=== PATIENT | female | born 1985 | race Caucasian/White ===

== ENCOUNTER 2019-01-12 17:07 | Inpatient (IN) | payer OTHER ==
[~2019-01-12] VITALS: Ht 167.6 cm; Wt 109.0 kg
[~2019-01-12 17:07] MED LIST: AMOX1TAB10 PO; DOCU-144 PO; HYDR-4011 PO; MEDICAL NOTE
[2019-01-12 19:30] VITALS: BP 135/83; PULSE 84; RESP 18
[2019-01-12 19:58] VITALS: Ht 167.6 cm; Wt 109.0 kg
[2019-01-12] MEDS ORDERED: ONDANSETRON 4 MG INJ IV PRN (22:00)
[2019-01-12] MEDS ORDERED: NACL 0.9% 3 ML SYG IV SCH (22:00)
[2019-01-12] MEDS: DEXTROSE 5%-0.45% NACL 1,000 ML IV SCH (22:45)
[2019-01-12] MEDS: morphine 2 MG INJ IV PRN (22:46)
[2019-01-13 01:47] VITALS: BP 103/56; PULSE 75; RESP 18
[2019-01-13] MEDS: DEXTROSE 5%-0.45% NACL 1,000 ML IV SCH ×3 (06:26→22:59)
[2019-01-13 07:45] VITALS: BP 119/71; PULSE 68; RESP 18
[2019-01-13] MEDS: FAMOTIDINE 20 MG INJ IV SCH ×2 (09:00→20:55)
[2019-01-13] MEDS ORDERED: FLU VACC QS 2019-20 (6MOS UP) 0.5 ML SYG IM* ONE (10:00)
[2019-01-13] MEDS ORDERED: POTASSIUM CHLORIDE 100 ML IVPB ONE (10:30)
[2019-01-13] MEDS: morphine 2 MG INJ IV PRN ×2 (10:44→18:40)
[2019-01-13] MEDS: PIPER-TAZO 3.375 GM IV (PMX) 100 ML IVPB SCH (13:35)
[2019-01-13 14:25] VITALS: BP 111/61; PULSE 72; RESP 18
[2019-01-13 19:51] VITALS: BP 123/76; PULSE 69; RESP 18
[2019-01-14] VITALS (36 sets, daily range): BP systolic 106–156; BP diastolic 55–95; PULSE 64–86; RESP 10–26
[2019-01-14] MEDS: PIPER-TAZO 3.375 GM IV (PMX) 100 ML IVPB SCH ×4 (00:05→21:24)
[2019-01-14] MEDS: DEXTROSE 5%-0.45% NACL 1,000 ML IV SCH ×2 (05:00→15:39)
[2019-01-14] MEDS: morphine 2 MG INJ IV PRN ×3 (08:29→23:34)
[2019-01-14] MEDS: FAMOTIDINE 20 MG INJ IV SCH ×2 (10:19→20:20)
[2019-01-14] MEDS ORDERED: HYDROmorphONE 1 MG/5 ML IV SYRINGE IV PRN ×3 (13:30)
[2019-01-14] MEDS ORDERED: METOCLOPRAMIDE 10 MG INJ IV PRN ×2 (13:30→16:00)
[2019-01-14] MEDS ORDERED: MEPERIDINE 25 MG INJ IV PRN (13:30)
[2019-01-14] MEDS ORDERED: ONDANSETRON 4 MG INJ IV PRN ×2 (13:30→16:00)
[2019-01-14] MEDS ORDERED: FENTAnyl 50 MCG/ML VIAL IV PRN (13:30)
[2019-01-14] MEDS ORDERED: DIPHENHYDRAMINE 50 MG INJ IV PRN ×2 (13:30→16:00)
[2019-01-14] MEDS ORDERED: ALBUTEROL 0.083% (NEB) 2.5 MG/3 ML AMP HHN PRN (13:30)
[2019-01-14] MEDS ORDERED: IOHEXOL 300MG/ML 30 ML BTL ONE (13:41)
[2019-01-14] MEDS ORDERED: FENTAnyl 50 MCG/ML VIAL ONE ×2 (13:50→15:18)
[2019-01-14] MEDS ORDERED: GLYCOPYRROLATE 0.4 MG INJ ONE (13:50)
[2019-01-14] MEDS ORDERED: DESFLURANE 15 MIN ONE (13:50)
[2019-01-14] MEDS ORDERED: ROPIVACAINE 0.5 % 30 ML VIAL ONE (13:55)
[2019-01-14] MEDS ORDERED: BUPIVACAINE 0.5%/EPI (SDV) 30 ML INJ ONE (14:30)
[2019-01-14] MEDS ORDERED: ROCURONIUM 50 MG INJ ONE (14:48)
[2019-01-14] MEDS ORDERED: PROPOFOL 20 ML ONE (14:48)
[2019-01-14] MEDS ORDERED: SUCCINYLCHOLINE CHLORIDE 100 MG/5 ML SYG IV ONE (14:48)
[2019-01-14] MEDS ORDERED: CEFAZOLIN 1 GM INJ ONE (14:48)
[2019-01-14] MEDS ORDERED: LIDOCAINE 100 MG SYRINGE ONE (14:49)
[2019-01-14] MEDS ORDERED: SUGAMMADEX SODIUM 200 MG/2 ML VIAL IV ONE (14:49)
[2019-01-14] MEDS: FENTAnyl 50 MCG/ML VIAL IV PRN ×4 (15:58→17:46)
[2019-01-14] MEDS ORDERED: morphine 2 MG INJ IV PRN (16:00)
[2019-01-14] MEDS ORDERED: HYDROmorphONE 0.5 MG/0.5 ML SYG IV PRN (16:00)
[2019-01-15] VITALS (19 sets, daily range): BP systolic 112–143; BP diastolic 68–78; PULSE 60–84; RESP 14–25
[2019-01-15] MEDS: KETOROLAC 30 MG INJ IV PRN ×3 (00:47→15:02)
[2019-01-15] MEDS: DEXTROSE 5%-0.45% NACL 1,000 ML IV SCH ×3 (00:49→14:25)
[2019-01-15] MEDS: morphine 2 MG INJ IV PRN ×4 (05:07→21:24)
[2019-01-15] MEDS: PIPER-TAZO 3.375 GM IV (PMX) 100 ML IVPB SCH ×3 (05:07→21:25)
[2019-01-15] MEDS ORDERED: INDOMETHACIN 50 MG SUPP PR ONE (08:00)
[2019-01-15] MEDS: FAMOTIDINE 20 MG INJ IV SCH ×2 (08:10→20:13)
[2019-01-15] MEDS ORDERED: IOHEXOL 300MG/ML 30 ML BTL ONE (10:35)
[2019-01-15] MEDS ORDERED: LABETALOL HCL 20MG INJ IV PRN (11:00)
[2019-01-15] MEDS ORDERED: OXYCODONE/ACETAMINOPHEN (5/325) TAB PO PRN ×2 (11:00)
[2019-01-15] MEDS ORDERED: ONDANSETRON 4 MG INJ IV PRN (11:00)
[2019-01-15] MEDS ORDERED: MIDAZOLAM 1 MG/ML 2 ML INJ IV PRN (11:00)
[2019-01-15] MEDS ORDERED: HYDROmorphONE 1 MG/5 ML IV SYRINGE IV PRN ×3 (11:00)
[2019-01-15] MEDS ORDERED: ALBUTEROL 0.083% (NEB) 2.5 MG/3 ML AMP HHN PRN (11:00)
[2019-01-15] MEDS ORDERED: EPHEDrine 25 MG/5 ML SYG IV PRN (11:00)
[2019-01-15] MEDS ORDERED: MEPERIDINE 25 MG INJ IV PRN (11:00)
[2019-01-15] MEDS ORDERED: FENTAnyl 50 MCG/ML VIAL IV PRN ×3 (11:00)
[2019-01-15] MEDS ORDERED: TRIMETHOBENZAMIDE 100 MG/ML VIAL IM PRN (11:00)
[2019-01-15] MEDS ORDERED: IPRATROPIUM (NEB) 0.5 MG/2.5 ML AMP HHN PRN (11:00)
[2019-01-15] MEDS ORDERED: hydrALAzine 20 MG INJ IV PRN (11:00)
[2019-01-15] MEDS ORDERED: DIPHENHYDRAMINE 50 MG INJ IV PRN (11:00)
[2019-01-15] MEDS ORDERED: NEOSTIGMINE 3 MG/3 ML SYRINGE ONE (11:12)
[2019-01-15] MEDS ORDERED: PROPOFOL 20 ML ONE (11:12)
[2019-01-15] MEDS ORDERED: ROCURONIUM 50 MG INJ ONE (11:12)
[2019-01-15] MEDS ORDERED: CEFAZOLIN 1 GM INJ ONE (11:12)
[2019-01-15] MEDS ORDERED: GLYCOPYRROLATE 0.4 MG INJ ONE (11:12)
[2019-01-15] MEDS ORDERED: FENTAnyl 50 MCG/ML VIAL ONE (11:13)
[2019-01-15] MEDS ORDERED: MIDAZOLAM 1 MG/ML 2 ML INJ ONE (11:13)
[2019-01-15] MEDS ORDERED: ONDANSETRON 4 MG INJ ONE (11:14)
[2019-01-15] MEDS ORDERED: DEXAMETHASONE 4 MG/ML 5 ML INJ ONE (11:14)
[2019-01-15] MEDS: HYDROCODONE/APAP (5/325) TAB PO PRN (23:45)
[2019-01-16] MEDS: morphine 2 MG INJ IV PRN ×2 (01:46→09:14)
[2019-01-16] MEDS: PIPER-TAZO 3.375 GM IV (PMX) 100 ML IVPB SCH (05:29)
[2019-01-16] MEDS: DEXTROSE 5%-0.45% NACL 1,000 ML IV SCH ×2 (05:29→06:48)
[2019-01-16] MEDS: HYDROCODONE/APAP (5/325) TAB PO PRN ×2 (06:50→12:09)
[2019-01-16 08:08] VITALS: BP 110/57; PULSE 76; RESP 15
[2019-01-16] MEDS: FAMOTIDINE 20 MG INJ IV SCH (09:07)
== END 2019-01-16 14:19 | disposition home or self-care (01) | DRG 419 ==
LOC: MS1 19:25
PROVIDERS: ADMIT Hospitalist; ATTEND Hospitalist
PROC: BF10YZZ Fluoroscopy of Bile Ducts using Other Contrast (ICD-10-PCS; 2019-01-14)
PROC: 0FT44ZZ Resection of Gallbladder, Percutaneous Endoscopic Approach (ICD-10-PCS; principal; 2019-01-14 13:00)
PROC: 0FC98ZZ Extirpation of Matter from Common Bile Duct, Via Natural or Artificial Opening Endoscopic (ICD-10-PCS; 2019-01-15)
DX: K80.43 Calculus of bile duct with acute cholecystitis with obstruction (principal); E66.9 Obesity, unspecified; Z68.38 Body mass index [BMI] 38.0-38.9, adult
CPT/HCPCS: 74181; 74300; 74330; 80048; 80053; 80076; 83690; 83735; 84100; 84703; 85025; 88304; 90686; J0690; J1100; J1170; J1885; J2001; J2250; J2270; J2405; J2543; J2710; J2795; J3010; J3480; J7042; Q9967